=== PATIENT | male | born 1955 | race Caucasian/White ===

== ENCOUNTER 2020-08-02 14:55 | Inpatient (IN) ==
[2020-08-02] MEDS ORDERED: Heparin - STEMI 5,000 UNITS/ML 1 ml VIAL IV ONE ×2 (15:06→16:01)
[2020-08-02] MEDS ORDERED: fentaNYL 100 mcg/2 ml 50 MCG/ML VIAL ONE ×3 (15:07→17:53)
[2020-08-02] MEDS ORDERED: Midazolam 5 mg/5 ml VIAL 1 mg/ml 5 ml VIAL (5 mg) ONE ×2 (15:07→15:59)
[2020-08-02] MEDS ORDERED: nitroGLYCERIN DRIP 25,000 MCG/250 ML BTL ONE (15:08)
[2020-08-02] MEDS ORDERED: Heparin 1,000 UNIT/ML 10 ml (10,000 UNITS) CATHLAB/DIALYSIS ONE (15:08)
[2020-08-02] MEDS ORDERED: Iohexol 350 (CONTRAST) 200 ML MDV IV ONE ×3 (15:08→16:27)
[2020-08-02] MEDS ORDERED: Lidocaine 1% VIAL 10 MG/ML VIAL ONE (15:08)
[2020-08-02] MEDS ORDERED: Heparin 2 UNITS/ML 1000 mls 2,000 ML IV ONE (15:08)
[2020-08-02] MEDS ORDERED: VERAPAMIL 2.5 MG/ML 2 ML VIAL ** 5 mg/2 ml ONE (15:08)
[2020-08-02 15:20] LABS: ABS Basophils 0.1 10^3/ul (0-0.2); ABS Eosinophils 0.4 10^3/ul (0-0.6); ABS Lymphocytes 3.5 10^3/ul (1.0-4.8); ABS Monocytes 1.1 10^3/ul (0-0.8); ABS Neutrophils 6.9 10^3/ul (1.5-7.7); Eosinophil % 3.7 %; Hematocrit 41 % (42-52); Hemoglobin 14.4 g/dL (14.0-18.0); Lymphocyte % 28.9 %; Mean Corpuscular HGB Conc 35 g/dL (31-36); Mean Corpuscular Hemoglobin 32 pg (27-31); Mean Corpuscular Volume 92 fL (80-94); Mean Platelet Volume 8.7 fL (7.4-10.4); Platelet Count 321 10^3/uL (150-450); Red Blood Count 4.46 10^6 /uL (4.18-5.48); Red Cell Distribution Width 13 % (10-15)
[2020-08-02 15:26] LABS: INR 1.02 (0.82-1.09)
[2020-08-02] MEDS ORDERED: Atropine 0.1 MG/ML 10 ml SYR (1 mg) ONE (15:33)
[2020-08-02] MEDS ORDERED: DOPamine 800 MG/250 ML IVPREM 800 MG/250 ML ML CENTR ONE (15:34)
[2020-08-02 15:36] LABS: EGFR African American 83.9 (>60); EGFR Non-African American 69.4 (>60); Potassium 3.9 mmol/L (3.5-5.0)
[2020-08-02 15:37] LABS: Albumin 4.1 g/dL (3.2-5.2); Albumin/Globulin Ratio 1.2 (1-3); Calcium 9.2 mg/dL (8.6-10.3); Globulin 3.4 g/dL (2-4); Total Bilirubin 0.3 mg/dL (0.2-1.0); Total Protein 7.5 g/dL (6.4-8.9)
[2020-08-02 15:38] LABS: Troponin I 0.01 ng/mL (<0.03)
[2020-08-02] MEDS ORDERED: Bivalirudin 250 MG VIAL ONE ×2 (15:38→16:13)
[2020-08-02] MEDS ORDERED: Phenylephrine 40 mcg/mL 10mL (400mcg) SYRINGE ONE (15:49)
[2020-08-02] MEDS ORDERED: Phenylephrine IV 10 MG/ML 1 ml VIAL ONE (15:50)
[2020-08-02] MEDS ORDERED: Rocuronium 50 mg VIAL 10 mg/ml 5 ml VIAL (50 mg) ONE (15:56)
[2020-08-02] MEDS ORDERED: Heparin 5000 UNITS/ML 1 mL VIAL IV ONE (16:00)
[2020-08-02] MEDS ORDERED: Metoprolol Tartrate 5 mg VIAL 5 ml VIAL (1 mg/ml) ONE (16:11)
[2020-08-02] MEDS ORDERED: NS 0.9% 1000 ml BAG 1,000 ML IV SCH (17:00)
[2020-08-02] MEDS ORDERED: Propofol 10 mg/ml 100 ML BTL ONE (17:03)
[2020-08-02] MEDS: Propofol 10 mg/ml 100 ML BTL 100 ML IV SCH ×2 (17:30→21:14)
[2020-08-02] MEDS ORDERED: Midazolam 2 mg/2 ml VIAL 1 mg/ml 2 ml VIAL (2 mg) IV SLOW PU PRN (17:38)
[2020-08-02] MEDS ORDERED: Midazolam 2 mg/2 ml VIAL 1 mg/ml 2 ml VIAL (2 mg) ONE (17:40)
[2020-08-02] MEDS ORDERED: fentaNYL 100 mcg/2 ml 50 MCG/ML VIAL IV SLOW PU PRN (17:52)
[2020-08-02] MEDS: fentaNYL 100 mcg/2 ml 50 MCG/ML VIAL IV SLOW PU ONE ×2 (18:30→20:06)
[2020-08-02] MEDS ORDERED: fentaNYL INFUSION 50 MCG/ML 2,500 MCG/50 ML BAG IV SCH (19:00)
[2020-08-02] MEDS ORDERED: Norepinephrine 16MCG/ML IVPRE 4,000 MCG/250 ML BAG IV ONE (19:29)
[2020-08-02] MEDS ORDERED: Norepinephrine 16MCG/ML IVPRE 4,000 MCG/250 ML BAG IV SCH (20:00)
[2020-08-02 20:13] LABS: Troponin I 22.85 ng/mL (<0.03)
[2020-08-02 20:38] LABS: Urine Appearance Clear; Urine Bacteria 1+ (Absent); Urine Bilirubin Negative (Negative); Urine Blood 2+ (Negative); Urine Color Yellow; Urine Glucose 2+(150 mg/dL) (Negative); Urine Ketones Negative (Negative); Urine Nitrite Negative (Negative); Urine Protein 1+(30 mg/dL) (Negative); Urine Red Blood Cell 3+(>10/hpf) (Absent); Urine Squamous Epithelial Cell Present (Absent); Urine Urobilinogen Negative (Negative); Urine White Blood Cell Trace(0-5/hpf) (Absent)
[2020-08-02 21:03] LABS: CKMB ng/mL 263.9 ng/mL (0.6-6.3)
[2020-08-02] MEDS: Chlorhexidine MOUTHWASH 0.12% 15 ML UDC SWISH SPIT SCH (21:07)
[2020-08-02 21:12] LABS: Urine Specific Gravity > 1.060 (1.002-1.030)
[2020-08-02 21:13] LABS: Creatine Kinase 1814 U/L (10-223)
[2020-08-03 00:03] LABS: CKMB ng/mL > 300.0 ng/mL (0.6-6.3); Troponin I > 74.00 ng/mL (<0.03)
[2020-08-03 00:13] LABS: Creatine Kinase 2328 U/L (10-223)
[2020-08-03] MEDS: Chlorhexidine MOUTHWASH 0.12% 15 ML UDC SWISH SPIT SCH ×3 (00:40→07:37)
[2020-08-03] MEDS: Propofol 10 mg/ml 100 ML BTL 100 ML IV SCH ×3 (00:40→08:22)
[2020-08-03 03:55] LABS: ABS Basophils 0.1 10^3/ul (0-0.2); ABS Eosinophils 0.2 10^3/ul (0-0.6); ABS Lymphocytes 2.3 10^3/ul (1.0-4.8); ABS Monocytes 1.4 10^3/ul (0-0.8); ABS Neutrophils 8.8 10^3/ul (1.5-7.7); Eosinophil % 1.2 %; Hematocrit 40 % (42-52); Hemoglobin 13.1 g/dL (14.0-18.0); Lymphocyte % 17.6 %; Mean Corpuscular HGB Conc 33 g/dL (31-36); Mean Corpuscular Hemoglobin 31 pg (27-31); Mean Corpuscular Volume 94 fL (80-94); Mean Platelet Volume 8.6 fL (7.4-10.4); Nucleated Red Blood Cells % 0.1; Platelet Count 312 10^3/uL (150-450); Red Blood Count 4.22 10^6 /uL (4.18-5.48); Red Cell Distribution Width 13 % (10-15); White Blood Count 12.8 10^3/uL (3.5-10.8)
[2020-08-03 04:11] LABS: ALT 46 U/L (7-52); AST 164 U/L (13-39); Albumin 3.4 g/dL (3.2-5.2); Albumin/Globulin Ratio 1.3 (1-3); Alkaline Phosphatase 62 U/L (34-104); Anion Gap 4 mmol/L (2-11); Blood Urea Nitrogen 19 mg/dL (6-24); CO2 Carbon Dioxide 23 mmol/L (22-32); Calcium 8.1 mg/dL (8.6-10.3); Chloride 105 mmol/L (101-111); Cholesterol 180 mg/dL; Creatine Kinase 1811 U/L (10-223); EGFR African American 114.1 (>60); EGFR Non-African American 94.3 (>60); Globulin 2.7 g/dL (2-4); Glucose 197 mg/dL (70-100); HDL Cholesterol 27.7 mg/dL; LDL Cholesterol 77 mg/dL; Potassium 4.3 mmol/L (3.5-5.0); Sodium 132 mmol/L (135-145); Total Protein 6.1 g/dL (6.4-8.9); Triglycerides 375 mg/dL
[2020-08-03 04:15] LABS: CKMB ng/mL 276.3 ng/mL (0.6-6.3)
[2020-08-03 04:19] LABS: Troponin I > 74.00 ng/mL (<0.03)
[2020-08-03] MEDS ORDERED: NS 0.9% IV ONE (07:15)
[2020-08-03] MEDS: Pantoprazole VIAL 40 MG VIAL IV SCH (07:37)
[2020-08-03] MEDS ORDERED: LORazepam 2 mg VIAL 1 ml ONE (08:52)
[2020-08-03] MEDS ORDERED: Lorazepam PYXIS KEY ONE ×2 (08:52→09:14)
[2020-08-03] MEDS ORDERED: Perflutren Lipid Microsphere 3 ML VIAL ONE (10:33)
[2020-08-03] MEDS ORDERED: Piperacillin/Tazobac ADVAN 3.375 GM in NS 0.9% 100 ml BAG 100 ML IV ONE (13:40)
[2020-08-03] MEDS ORDERED: Vancomycin 1,000 MG in NS 0.9% 250 ml 250 ML IVPB ONE (13:50)
[2020-08-03] MEDS ORDERED: Zosyn per Pharmacy NOTE FOLLOW UP SCH (14:00)
[2020-08-03] MEDS ORDERED: Vancomycin per Pharmacy 1 EA NOTE FOLLOW UP SCH (14:00)
[2020-08-03] MEDS ORDERED: Vancomycin 1,750 MG in NS 0.9% 500 ml BAG 500 ML IVPB ONE (15:00)
[2020-08-03] MEDS: ZOSYN 3.375 GM Q8H per EXTENDED INFUSION IV SCH (20:13)
[2020-08-03 20:31] LABS: Troponin I 50.69 ng/mL (<0.03)
[2020-08-03] MEDS: Vancomycin 1000 MG in NS 0.9% 250 ML IVPB SCH (23:30)
[2020-08-04 00:22] LABS: Troponin I 37.98 ng/mL (<0.03)
[2020-08-04] MEDS: ZOSYN 3.375 GM Q8H per EXTENDED INFUSION IV SCH ×3 (03:11→19:13)
[2020-08-04 04:57] LABS: Hematocrit 33 % (42-52); Hemoglobin 11.3 g/dL (14.0-18.0); Mean Corpuscular HGB Conc 34 g/dL (31-36); Mean Corpuscular Hemoglobin 31 pg (27-31); Mean Corpuscular Volume 92 fL (80-94); Mean Platelet Volume 8.8 fL (7.4-10.4); Platelet Count 207 10^3/uL (150-450); Red Blood Count 3.62 10^6 /uL (4.18-5.48); Red Cell Distribution Width 13 % (10-15); White Blood Count 13.5 10^3/uL (3.5-10.8)
[2020-08-04 05:13] LABS: Calcium 7.6 mg/dL (8.6-10.3); EGFR African American 119.1 (>60); EGFR Non-African American 98.4 (>60); Potassium 3.6 mmol/L (3.5-5.0)
[2020-08-04] MEDS ORDERED: Potassium Chlor 20 meq TAB.ER PO ONE (05:33)
[2020-08-04] MEDS: Pantoprazole VIAL 40 MG VIAL IV SCH (08:25)
[2020-08-04] MEDS: Vancomycin 1000 MG in NS 0.9% 250 ML IVPB SCH (08:25)
[2020-08-04] MEDS ORDERED: Vancomycin Trough Check NOTE FOLLOW UP ONE (15:00)
[2020-08-04] MEDS ORDERED: Vancomycin Random Level NOTE FOLLOW UP ONE (17:00)
[2020-08-05] MEDS: ZOSYN 3.375 GM Q8H per EXTENDED INFUSION IV SCH (02:31)
[2020-08-05 05:37] LABS: Hematocrit 32 % (42-52); Hemoglobin 10.8 g/dL (14.0-18.0); Mean Corpuscular HGB Conc 34 g/dL (31-36); Mean Corpuscular Hemoglobin 31 pg (27-31); Mean Corpuscular Volume 93 fL (80-94); Mean Platelet Volume 9.1 fL (7.4-10.4); Platelet Count 192 10^3/uL (150-450); Red Blood Count 3.45 10^6 /uL (4.18-5.48); Red Cell Distribution Width 13 % (10-15); White Blood Count 13.5 10^3/uL (3.5-10.8)
[2020-08-05] MEDS: Pantoprazole VIAL 40 MG VIAL IV SCH (14:47)
[2020-08-06] MEDS ORDERED: Empaglifozin 10 mg TAB (NF) PO SCH (09:00)
[2020-08-06 09:45] LABS: ABS Basophils 0.1 10^3/ul (0-0.2); ABS Eosinophils 0.5 10^3/ul (0-0.6); ABS Lymphocytes 1.5 10^3/ul (1.0-4.8); ABS Monocytes 0.9 10^3/ul (0-0.8); ABS Neutrophils 7.8 10^3/ul (1.5-7.7); Eosinophil % 4.4 %; Hematocrit 34 % (42-52); Hemoglobin 11.7 g/dL (14.0-18.0); Lymphocyte % 13.6 %; Mean Corpuscular HGB Conc 35 g/dL (31-36); Mean Corpuscular Hemoglobin 32 pg (27-31); Mean Corpuscular Volume 92 fL (80-94); Mean Platelet Volume 9.5 fL (7.4-10.4); Platelet Count 228 10^3/uL (150-450); Red Blood Count 3.64 10^6 /uL (4.18-5.48); Red Cell Distribution Width 13 % (10-15); White Blood Count 10.7 10^3/uL (3.5-10.8)
[2020-08-06 10:04] LABS: Calcium 8.6 mg/dL (8.6-10.3); EGFR African American 99.9 (>60); EGFR Non-African American 82.6 (>60); Magnesium 1.9 mg/dL (1.9-2.7); Potassium 3.7 mmol/L (3.5-5.0)
[2020-08-06 12:41] VITALS: BP 117/52
== END 2020-08-06 16:02 | disposition home or self-care (01) | DRG 247 ==
LOC: ED 14:55 → CHICATH 15:14 → ICU 16:49 → MEDTELE 08-05 11:53
PROVIDERS: ADMIT Internal Medicine Cardiovascular Disease; ATTEND Hospitalist